=== PATIENT | female | born 1965 | race Caucasian/White ===

== ENCOUNTER → 2017-08-25 | Outpatient (CLI) | payer BC | END | disposition home or self-care (01) | LOC: CDC 13:35 | DX: Z01.810 Encounter for preprocedural cardiovascular examination (principal); C50.411 Malignant neoplasm of upper-outer quadrant of right female breast; I44.0 Atrioventricular block, first degree | CPT/HCPCS: 93000 ==

== ENCOUNTER 2017-09-07 05:37 | Day surgery (SDC) | payer BC ==
[~2017-09-07] VITALS: Ht 157.5 cm; Wt 105.6 kg
[~2017-09-07 05:37] MED LIST: ASCORBIC ACID250 MG PO; BUSPAR10 MG PO; BUSPAR15 MG PO; CALCIUM 600 +1 EAC4 PO; LEXAPRO20 MG PO; OMEGA-31000 M1 PO; PROTONIX40 MG PO; TYLENOL EXTRA500 MG PO; WOMEN'S DAILY1 EAC4 PO; XANAX0.25 MG PO; ZYRTEC10 M2 PO
[2017-09-07 06:03] VITALS: BP 118/69
[2017-09-07] MEDS ORDERED: HYDROCODON-ACE1 EAC7 PO (11:27)
[2017-09-07 13:13] VITALS: BP 117/58
[2017-09-07 14:02] VITALS: BP 123/59
== END 2017-09-07 14:25 | disposition home or self-care (01) ==
LOC: SDC 05:37 → NUC 07:00 → SDC 07:00
PROVIDERS: Pediatrics
DX: C50.411 Malignant neoplasm of upper-outer quadrant of right female breast (principal); Z17.0 Estrogen receptor positive status [ER+]; F41.9 Anxiety disorder, unspecified; E66.01 Morbid (severe) obesity due to excess calories; Z68.41 Body mass index [BMI] 40.0-44.9, adult; K21.9 Gastro-esophageal reflux disease without esophagitis
CPT/HCPCS: 78195; 78999; 81025; 88305; 88307; A9541; J0330; J0690; J1100; J1170; J1885; J2405; J2710; J3010; S0020

== ENCOUNTER 2018-01-26 20:10 | Emergency (ER) | payer BC ==
[~2018-01-26] VITALS: Ht 157.5 cm; Wt 109.2 kg
[~2018-01-26 20:10] MED LIST changes: +HYDROCODON-ACE1 EAC7 PO
[2018-01-26 21:53] LABS: HEMATOCRIT 31.5 % (36.0-46.0); HEMOGLOBIN 10.5 G/DL (11.9-15.5); MCH 29.5 PG (29.0-34.0); MCHC 33.3 G/DL (30.0-36.0); MCV 88.5 FL (83-99); PLATELET COUNT 186 K/uL (156-360); RBC DIS.WIDTH-CV 13.7 % (11.8-14.6); RBC DIS.WIDTH-SD 44.7 % (39-53); RED BLOOD COUNT 3.56 M/uL (3.80-5.20); WHITE BLOOD COUNT 5.8 K/uL (4.1-10.2)
[2018-01-26 22:04] LABS: PTT 24.9 SEC (25-37)
[2018-01-26 22:08] LABS: CHLORIDE 108 mEq/L (99-109)
[2018-01-26 22:09] LABS: POTASSIUM 3.9 mEq/L (3.7-5.4); SODIUM 143 mEq/L (136-147)
[2018-01-26 22:10] LABS: GLUCOSE 109 mg/dL (70-99)
[2018-01-26 22:14] LABS: CREATININE 0.7 mg/dL (0.6-1.3); GFR ESTIMATE (CALCULATED) > 59 mL/min/
[2018-01-26 22:15] LABS: UREA NITROGEN (BUN) 14 mg/dL (9-23)
[2018-01-26 23:23] VITALS: BP 140/69
== END 2018-01-26 23:23 | disposition home or self-care (01) ==
LOC: EME 20:10
PROVIDERS: Physician Assistant
DX: R60.0 Localized edema (principal); C50.919 Malignant neoplasm of unspecified site of unspecified female breast; L03.311 Cellulitis of abdominal wall
CPT/HCPCS: 80048; 85027; 85610; 85730; 93971; 99281; 99284